=== PATIENT | female | born 1985 | race Hispanic/Latino ===

== ENCOUNTER 2020-05-20 09:50 | Inpatient (IN) | payer OTHER ==
[2020-05-20] MEDS ORDERED: Fentanyl 100 MCG/2 ML VIAL ONE (09:55)
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
[2020-05-20] MEDS ORDERED: Iopamidol 370 76% 100 ML VIAL ONE (10:09)
[2020-05-20 10:15] LABS: #Basophils 0.1 thou/uL (0.0-0.2); #Lymphocytes 3.4 thou/uL (1.20-3.40); #Monocytes 0.7 thou/uL (0.11-0.59); #Neutrophils 9.1 thou/uL (1.40-6.50); %Basophils 0.5 % (0.0-1.0); %Eosinophils 0.3 % (0.0-10.0); %Lymphocytes 25.3 % (21.0-51.0); %Monocytes 5.5 % (0.0-10.0); %Neutrophils 68.4 % (42.0-75.0); Hemoglobin 13.4 g/dL (12.0-16.0); Mean Corpuscular HGB CONC 33.8 g/dL (32.0-36.0); Mean Corpuscular Hemoglobin 31.1 pg (27.0-31.0); Mean Corpuscular Volume 91.9 fL (78.0-98.0); Mean Platelet Volume 7.3 fL (7.4-10.4); Platelet Count 298 thou/uL (130-400); RBC Distribution Width 11.9 % (11.5-14.5); White Blood Cell (WBC) Count 13.3 thou/uL (4.8-10.8)
[2020-05-20 10:44] LABS: BHCG - Serum Negative (NEGATIVE); Pregs Control Background? CLEAR/WHITE (CLR/WHITE); Pregs Control Bar Appear? YES (CONTROL BAR)
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
[2020-05-20 10:52] LABS: ALT (SGPT) 250 U/L (8-55); AST (SGOT) 274 U/L (5-34); Acetaminophen Less than 6.0 mcg/mL (10.0-30.0); Albumin 3.9 g/dL (3.5-5.0); Alcohol 71 mg/dL (Less than 10); Alkaline Phosphatase 62 U/L (40-110); Anion Gap 18 mmol/L (10-20); BUN (Urea Nitrogen) 8 mg/dL (7.0-18.7); Bilirubin, Total 0.2 mg/dL (0.2-1.2); Calc. Creatinine Clearance 0 mL/min (70-130); Calcium 8.1 mg/dL (7.8-10.44); Carbon Dioxide 15 mmol/L (22-29); Chloride 112 mmol/L (98-107); Estimated GFR-MDRD 79; Glucose 117 mg/dL (70-105); Potassium 3.9 mmol/L (3.5-5.1); Protein, Total 6.9 g/dL (6.0-8.3); Salicylate Less than 8.0 mg/dL (15.0-30.0); Sodium 141 mmol/L (136-145)
[2020-05-20] MEDS ORDERED: Morphine 4 MG/ML VIAL ONE (10:56)
[2020-05-20 11:30] LABS: Bacteria/HPF None Seen HPF (None Seen); Bilirubin Negative (Negative); Blood, Urine 1+ (Negative); Clarity Clear (Clear); Glucose, Urine (Dipstick) Normal (Negative); Ketone, Urine Negative (Negative); Leukocyte Negative Leu/uL (Negative); Nitrite Negative (Negative); Protein, Urine (Dipstick) 20 mg/dL (Neg-Trace); Squamous Epithelial 0-3 HPF (0-3); Urobilinogen Normal mg/dL (Less than 2); WBC/HPF 0-3 HPF (0-3); pH, Urine 5.5 (5.0-9.0)
[2020-05-20 11:31] LABS: Specific Gravity, Urine 1.055 (1.002-1.036)
[2020-05-20 11:38] LABS: Amphetamine Not Detected (NotDetected); Barbiturates Screen Not Detected (NotDetected); Benzodiazepine Screen Not Detected (NotDetected); Cocaine Metabolite Screen Not Detected (NotDetected); Medtox Control Line Valid? VALID (VALID); Medtox Reader # READER 1; Methadone Not Detected (NotDetected); Methamphetamine Not Detected (NotDetected); Opiate Screen Detected (NotDetected); Oxycodone Screen Not Detected (NotDetected); Phencyclidine (PCP) Not Detected (NotDetected); THC/Cannabinoid Screen Not Detected (NotDetected); Tricyclic Screen Not Detected (NotDetected)
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
[2020-05-20] MEDS ORDERED: Boostrix 0.5 ML VIAL ONE (11:52)
[2020-05-20] MEDS ORDERED: Dextrose 5% in Water 1,000 ML IV PRN (11:59)
[2020-05-20] MEDS ORDERED: Morphine 2 MG/ML VIAL SLOW IVP PRN (11:59)
[2020-05-20] MEDS ORDERED: Dextrose 50% Abboject 50 ML SYRINGE SLOW IVP PRN (11:59)
[2020-05-20] MEDS ORDERED: Sodium Chloride 0.9% 1,000 ML IV SCH (12:00)
[2020-05-20] MEDS ORDERED: traMADol HCl 50 MG TAB PO PRN (12:04)
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
[2020-05-20 13:58] VITALS: BMI 33.5
[2020-05-20] MEDS: Ibuprofen 600 MG TAB PO SCH ×2 (14:04→22:51)
[2020-05-20] MEDS: traMADol HCl 50 MG TAB PO SCH ×2 (14:05→20:31)
[2020-05-20] MEDS: Acetaminophen 325 MG TAB PO SCH ×2 (14:05→17:29)
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
[2020-05-20] MEDS: Ondansetron PF 4 MG/2 ML Vial IVP PRN (20:32)
[2020-05-20] MEDS: Famotidine 20 MG TAB PO SCH (20:32)
[2020-05-21] MEDS: Acetaminophen 325 MG TAB PO SCH ×2 (00:03→05:53)
[2020-05-21 03:53] LABS: #Basophils 0.1 thou/uL (0.0-0.2); #Lymphocytes 2.1 thou/uL (1.20-3.40); #Monocytes 0.6 thou/uL (0.11-0.59); %Basophils 0.9 % (0.0-1.0); %Eosinophils 0.2 % (0.0-10.0); %Lymphocytes 30.9 % (21.0-51.0); %Monocytes 8.7 % (0.0-10.0); %Neutrophils 59.3 % (42.0-75.0); Hemoglobin 11.5 g/dL (12.0-16.0); Mean Corpuscular Hemoglobin 31.1 pg (27.0-31.0); Mean Corpuscular Volume 91.4 fL (78.0-98.0); Mean Platelet Volume 7.5 fL (7.4-10.4); Platelet Count 229 thou/uL (130-400); RBC Distribution Width 11.9 % (11.5-14.5); White Blood Cell (WBC) Count 6.7 thou/uL (4.8-10.8)
[2020-05-21 04:15] LABS: Anion Gap 12 mmol/L (10-20); BUN (Urea Nitrogen) 16 mg/dL (7.0-18.7); Calc. Creatinine Clearance 154 mL/min (70-130); Calcium 7.9 mg/dL (7.8-10.44); Carbon Dioxide 23 mmol/L (22-29); Chloride 106 mmol/L (98-107); Estimated GFR-MDRD Greater than 90; Glucose 98 mg/dL (70-105); Magnesium 1.9 mg/dL (1.6-2.6); Phosphorus 3.4 mg/dL (2.3-4.7); Potassium 3.8 mmol/L (3.5-5.1); Sodium 137 mmol/L (136-145)
[2020-05-21] MEDS: traMADol HCl 50 MG TAB PO SCH ×4 (05:16→23:33)
[2020-05-21] MEDS: Ibuprofen 600 MG TAB PO SCH ×3 (05:17→20:44)
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
[2020-05-21] MEDS: Famotidine 20 MG TAB PO SCH ×2 (09:01→20:44)
[2020-05-21 11:01] LABS: SARS-CoV-2 MS2 Positive; SARS-CoV-2 N Gene Negative; SARS-CoV-2 S Gene Negative; SARS-CoV-2 by NAA Not Detected (NotDetected); SARS-CoV-2 orf1ab Negative
[2020-05-21] MEDS ORDERED: Acetaminophen 325 MG TAB PO SCH (12:00)
[2020-05-21] MEDS: Acetaminophen 500 MG TAB PO SCH ×3 (12:14→23:34)
[2020-05-21] MEDS: Gabapentin 100 MG CAP PO SCH ×2 (16:32→20:44)
[2020-05-21] MEDS: Ondansetron PF 4 MG/2 ML Vial IVP PRN (20:47)
[2020-05-22] MEDS: Acetaminophen 500 MG TAB PO SCH ×2 (04:20→10:58)
[2020-05-22] MEDS: traMADol HCl 50 MG TAB PO SCH (04:20)
[2020-05-22] MEDS: Ibuprofen 600 MG TAB PO SCH ×2 (04:20→12:18)
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
[2020-05-22] MEDS: Famotidine 20 MG TAB PO SCH (08:17)
[2020-05-22] MEDS: Gabapentin 100 MG CAP PO SCH (08:17)
[2020-05-22] MEDS: Ondansetron PF 4 MG/2 ML Vial IVP PRN (08:21)
[2020-05-22] MEDS ORDERED: traMADol HCl 50 MG TAB PO PRN (10:26)
[2020-05-22] MEDS ORDERED: Scopolamine 1.5 mg/72 hour Patch TD SCH (11:00)
[2020-05-22 15:24] VITALS: BP 128/74; TEMP 98.1
[2020-05-22] MEDS ORDERED: Senokot S 8.6-50 MG TAB PO SCH (21:00)
[2020-05-23] MEDS ORDERED: Polyethylene Glycol 3350 17 GM Packet PO SCH (09:00)
== END 2020-05-22 15:55 | disposition home or self-care (01) | DRG 964 ==
LOC: ERS 09:50 → IMCU/EMU 13:28 → SURG B 05-21 18:17
PROVIDERS: ADMIT Specialist; ATTEND Specialist
DX: S25.89 Other specified injury of other blood vessels of thorax (principal); S02.32XA Fracture of orbital floor, left side, initial encounter for closed fracture; S32.592A Other specified fracture of left pubis, initial encounter for closed fracture; S36.119A Unspecified injury of liver, initial encounter; S02.31XA Fracture of orbital floor, right side, initial encounter for closed fracture; E66.9 Obesity, unspecified; F10.129 Alcohol abuse with intoxication, unspecified; S05.11XA Contusion of eyeball and orbital tissues, right eye, initial encounter; Z68.33 Body mass index [BMI] 33.0-33.9, adult; R58 Hemorrhage, not elsewhere classified; Z20.828 Contact with and (suspected) exposure to other viral communicable diseases
CPT/HCPCS: 12011; 36415; 51701; 70450; 70486; 71045; 71260; 72125; 72170; 74177; 80048; 80053; 80306; 80307; 81003; 81015; 83735; 84100; 84703; 85025; 86850; 86900; 86901; 87635; 90471; 90715; 94760; 96374; G0390; J2270; J2405; J3010; Q9967; U0003